=== PATIENT | female | born 1995 | race Caucasian/White ===

== ENCOUNTER 2020-07-29 18:28 | Emergency (ER) | payer MEDICAID ==
--- NOTE | 2020-07-29 19:57 | ER Document Report ---
ED General - General Chief Complaint: Rash Stated Complaint: RASH Time Seen by Provider: 07/29/20 19:44 [facility] [[facility] - Follow up in 1 week ABIOLA AVENDANO DO [ACTIVE STAFF] - Follow up in 1 week (for dermatology) - HPI Notes: 25-year-old female to the emergency department with complaints of a rash that developed on her face today. She states that a month ago she was treated for scabies and use permethrin. She states that predominantly that had cleared up except for she continues to have some itching in her armpits. She states that this rash is was there when she woke up and is not particularly itchy. She denies any change in facial lotions, soaps, detergent, diet. She states that it is not painful. It has not been scaly. She took a Benadryl and put some hydrocortisone cream on it. She states this did not help. She does have a history of eczema but she has no other areas where she feels like the eczema is erupting. She also has a secondary complaint of fatigue. She states is been going on for several months. She has not seen a primary care physician about it. She is worried that she may be anemic. She has a past medical history for cancer that has been in remission for 13 years. She denies any night sweats, weight loss, chance for , urinary symptoms, abdominal pain, chest pain. - Related Data Allergies/Adverse Reactions: No Known Allergies Allergy (Unverified 07/29/20 21:55) Past Medical History - General Information source: Patient - Social History Smoking Status: Never Smoker Frequency of alcohol use: None Drug Abuse: None Family History: Reviewed & Not Pertinent Review of Systems - Review of Systems Constitutional: Other - Generalized fatigue for months. denies: Chills, Fever EENT: No symptoms reported Cardiovascular: denies: Chest pain, Palpitations, Heart racing, Orthopnea, Syncope, Dizziness, Lightheaded Respiratory: denies: Cough, Short of breath Gastrointestinal: denies: Abdominal pain, Diarrhea, Nausea, Vomiting Genitourinary: No symptoms reported Musculoskeletal: No symptoms reported Skin: Rash - See HPI Neurological/Psychological: No symptoms reported -: Yes All other systems reviewed and negative Physical Exam - Vital signs Vitals: Temp Pulse Resp BP Pulse Ox 98.2 F 98 16 143/84 H 100 07/29/20 18:45 07/29/20 18:45 07/29/20 18:45 07/29/20 18:45 07/29/20 18:45 Interpretation: Normal - Notes Notes: PHYSICAL EXAMINATION: GENERAL: Well-appearing, well-nourished and in no acute distress. HEAD: Atraumatic, normocephalic. See skin EYES: Pupils equal round and reactive to light, extraocular movements intact, sclera anicteric, conjunctiva are normal. ENT: nares patent, oropharynx clear without exudates. Moist mucous membranes. TMs are clear bilaterally NECK: Normal range of motion, supple without lymphadenopathy LUNGS: Breath sounds clear to auscultation bilaterally and equal. No wheezes rales or rhonchi. HEART: Regular rate and rhythm without murmurs ABDOMEN: Soft, nontender, normoactive bowel sounds. No guarding, no rebound. No masses appreciated. EXTREMITIES: Normal range of motion, no pitting or edema. No cyanosis. NEUROLOGICAL: No focal neurological deficits. Moves all extremities spontaneously and on command. PSYCH: Normal mood, normal affect. SKIN: Warm, Dry, normal turgor, there is an erythematous macule rash to bilateral cheeks. It is not and a butterfly pattern. It is blanchable. It is slightly scaly. There is no vesicles. There is no sloughing of the skin. There is no crusting. There is no necrosis. There is no petechia or purpura. Under her arm she has some excoriations but no brandt burrowing or linear papules Course - Re-evaluation Re-evalutation: 07/30/20 00:36 Impression: Fatigue, contact dermatitis to the face. Labs are very reassuring. She had mild low blood sugar but she ate while she was waiting for results. She has a rash to her face that does not appear to be scabies. She continues to itch under her arms. We will do 1 more round of permethrin for this. But she is to spare her face of the permethrin. We will do steroids for her to take. We will have her follow-up with dermatology for the skin issues and have her see primary care for further evaluation for her fatigue. Patient agrees with the plan. - Vital Signs Vital signs: Temp Pulse Resp BP Pulse Ox 98.2 F 91 16 116/76 100 07/29/20 18:45 07/29/20 21:55 07/29/20 21:55 07/29/20 21:55 07/29/20 21:55 - Laboratory Result Diagrams: 07/29/20 20:07 07/29/20 20:07 Laboratory results interpreted by me: 07/29/20 20:07 Glucose 68 L Discharge - Discharge Clinical Impression: Dermatitis Fatigue Qualifiers: Fatigue type: unspecified Qualified Code(s): R53.83 - Other fatigue Condition: Stable Disposition: HOME, SELF-CARE Instructions: Contact Dermatitis ([facility]), Fatigue ([facility]) Additional Instructions: Follow-up with primary care physician for further evaluation for your fatigue. Today your hemoglobin was normal as well as white blood count. You had reassuring kidney function and your thyroid levels were normal. Please take steroids for your face rash. Please follow-up with appliance fixer without fail. You have been given a prescription for another dose of permethrin. Do not apply this to the face. Return if any worsening symptoms. Prescriptions: Permethrin [Acticin 5% Cream 60 gm] 1 applic TP ONCE PRN #1 tube PRN Reason: Methylprednisolone [Medrol Dosepack (4 mg/Tab) 21 Tab/Dosepak] 4 mg PO ASDIR PRN #21 [email or web address] PRN Reason: Referrals: [facility] [Provider Group] - Follow up in 1 week ABIOLA AVENDANO DO [ACTIVE STAFF] - Follow up in 1 week (for dermatology)
[2020-07-29 20:51] LABS: ABSOLUTE EOSINOPHILS # (AUTO) 0.1 10^3/uL (0.0-0.6); ABSOLUTE LYMPHOCYTES (AUTO) 1.1 10^3/uL (0.5-4.7); ABSOLUTE MONOCYTES (AUTO) 0.2 10^3/uL (0.1-1.4); ABSOLUTE NEUT (AUTO) 2.7 10^3/uL (1.7-8.2); BASOPHILS % (AUTO) 0.3 % (0-2); EOSINOPHILS % (AUTO) 1.3 % (0-6); HEMATOCRIT 37.9 % (36.0-47.0); HEMOGLOBIN 13.3 g/dL (12.0-15.5); LYMPHOCYTES % (AUTO) 26.6 % (13-45); MEAN CORPUSCULAR HEMOGLOBIN 32.2 pg (27.0-33.4); MEAN CORPUSCULAR HGB CONC 35.2 g/dL (32.0-36.0); MEAN CORPUSCULAR VOLUME 92 fl (80-97); MONOCYTES % (AUTO) 5.6 % (3-13); PLATELET COUNT 285 10^3/uL (150-450); RED BLOOD COUNT 4.14 10^6/uL (3.72-5.28); RED CELL DISTRIBUTION WIDTH 13.9 % (11.5-14.0); SEGMENTED NEUTROPHILS % (AUTO) 66.2 % (42-78); TOTAL CELLS COUNTED % (AUTO) 100 %; WHITE BLOOD COUNT 4.1 10^3/uL (4.0-10.5)
[2020-07-29 21:03] LABS: ANION GAP 9 (5-19); BLOOD UREA NITROGEN 14 mg/dL (7-20); CALCIUM 9.6 mg/dL (8.4-10.2); CARBON DIOXIDE 29 mmol/L (22-30); CHLORIDE 103 mmol/L (98-107); POTASSIUM 4.2 mmol/L (3.6-5.0)
[2020-07-29 21:05] LABS: GLUCOSE 68 mg/dL (75-110)
[2020-07-29 22:09] VITALS: BP 116/76
== END 2020-07-29 22:00 | disposition home or self-care (01) ==
LOC: ER 18:28
DX: L25.9 Unspecified contact dermatitis, unspecified cause (principal); R53.83 Other fatigue
CPT/HCPCS: 36415; 80048; 84443; 84703; 85025; 99283